=== PATIENT | female | born 1945 | race Caucasian/White ===

== ENCOUNTER → 2017-10-02 | Outpatient (CLI) | payer OTHER ==
[~2017-10-02] MED LIST: AMLODIPINE-BEN1 EAC3 PO; ASPIR 8181 MG PO; DETROL LA4 MG PO; LORATIDINE 10 M10 M1 PO; NEXIUM 40 MG CA40 M1 PO; NORCO 5-325 TA1 EACH PO; NOVAFERRUM 5050 MG PO; VITAMIN D2000 UNIT PO
== END ==
LOC: HYPER 08:28
DX: I87.312 Chronic venous hypertension (idiopathic) with ulcer of left lower extremity (principal); L97.821 Non-pressure chronic ulcer of other part of left lower leg limited to breakdown of skin; Z87.891 Personal history of nicotine dependence

== ENCOUNTER → 2017-10-08 | Outpatient (CLI) | payer OTHER ==
[~2017-10-08] MED LIST changes: +ALLERGY10 MG PO; +LASIX 20 MG TAB20 MG PO; +NEURONTIN 300300 M1 PO; +PERCOCET PO; +POTASSIUM20 PO
== END ==
LOC: HYPER 06:42
DX: I87.312 Chronic venous hypertension (idiopathic) with ulcer of left lower extremity (principal); L97.821 Non-pressure chronic ulcer of other part of left lower leg limited to breakdown of skin; K21.9 Gastro-esophageal reflux disease without esophagitis; Z87.891 Personal history of nicotine dependence

== ENCOUNTER → 2017-10-09 | Outpatient (CLI) | payer OTHER ==
[2017-10-09 11:24] LABS: HEMATOCRIT 34.3 % (37.0-47.0); HEMOGLOBIN 11.2 gm/dL (12.0-15.0); MCH 27.9 pg (26.0-34.0); MCHC 32.6 g/dL (28.0-37.0); MCV 85.6 fL (80.0-100.0); RBC 4.01 mil/uL (4.20-5.00); RDW 14.6 % (10.5-14.5); WBC 7.4 thou/uL (4.0-11.0)
[2017-10-09 11:43] LABS: ALBUMIN 3.5 g/dL (3.4-5.0); CALCIUM 8.8 mg/dL (8.5-10.1); CREATININE 0.9 mg/dL (0.6-1.0); POTASSIUM 4.5 mmol/L (3.5-5.1); TOTAL BILIRUBIN 0.3 mg/dL (<0.1-1.0); TOTAL PROTEIN 7.2 g/dL (6.4-8.2)
[2017-10-09 12:30] VITALS: BP 135/89
== END ==
LOC: OPONC 09:19
PROVIDERS: Specialist
DX: L97.821 Non-pressure chronic ulcer of other part of left lower leg limited to breakdown of skin (principal)
CPT/HCPCS: 95000

== ENCOUNTER → 2017-10-10 | Outpatient (CLI) | payer OTHER | LOC: OPONC 04:01 | DX: L03.116 Cellulitis of left lower limb (principal); Z88.2 Allergy status to sulfonamides; Z88.0 Allergy status to penicillin | CPT/HCPCS: 95000 ==

== ENCOUNTER → 2017-10-15 | Outpatient (CLI) | payer OTHER ==
[2017-10-15 11:10] VITALS: BP 147/39
== END ==
LOC: HYPER
DX: I87.312 Chronic venous hypertension (idiopathic) with ulcer of left lower extremity (principal); L97.821 Non-pressure chronic ulcer of other part of left lower leg limited to breakdown of skin; K21.9 Gastro-esophageal reflux disease without esophagitis; Z87.891 Personal history of nicotine dependence
CPT/HCPCS: 95000

== ENCOUNTER → 2017-10-16 | Outpatient (CLI) | payer OTHER ==
[2017-10-16 12:38] VITALS: BP 113/82
== END ==
LOC: OPONC 01:37
DX: L03.116 Cellulitis of left lower limb (principal); Z88.0 Allergy status to penicillin; Z88.2 Allergy status to sulfonamides; Z88.8 Allergy status to other drugs, medicaments and biological substances
CPT/HCPCS: 95000

== ENCOUNTER → 2017-10-17 | Outpatient (CLI) | payer OTHER | LOC: OPONC 09:00 | DX: L03.116 Cellulitis of left lower limb (principal) | CPT/HCPCS: 95000 ==

== ENCOUNTER → 2017-10-18 | Outpatient (CLI) | payer OTHER | LOC: OPONC 04:25 | DX: L03.116 Cellulitis of left lower limb (principal) | CPT/HCPCS: 95000 ==

== ENCOUNTER → 2017-10-29 | Outpatient (CLI) | payer OTHER | LOC: HYPER 06:50 | DX: I87.312 Chronic venous hypertension (idiopathic) with ulcer of left lower extremity (principal); L97.821 Non-pressure chronic ulcer of other part of left lower leg limited to breakdown of skin; K21.9 Gastro-esophageal reflux disease without esophagitis; Z87.891 Personal history of nicotine dependence ==

== ENCOUNTER → 2017-12-03 | Outpatient (CLI) | payer OTHER | LOC: HYPER 11-12 11:27 | DX: I87.312 Chronic venous hypertension (idiopathic) with ulcer of left lower extremity (principal); L97.821 Non-pressure chronic ulcer of other part of left lower leg limited to breakdown of skin; K21.9 Gastro-esophageal reflux disease without esophagitis; E66.9 Obesity, unspecified; Z68.37 Body mass index [BMI] 37.0-37.9, adult; Z87.891 Personal history of nicotine dependence ==

== ENCOUNTER → 2018-05-13 | Outpatient (CLI) | payer OTHER | LOC: RAD 11:19 | DX: M47.814 Spondylosis without myelopathy or radiculopathy, thoracic region (principal) ==

== ENCOUNTER → 2018-06-02 | Outpatient (CLI) | payer OTHER | LOC: HYPER 06:43 | DX: L97.811 Non-pressure chronic ulcer of other part of right lower leg limited to breakdown of skin (principal); I87.2 Venous insufficiency (chronic) (peripheral); Z98.49 Cataract extraction status, unspecified eye; Z87.891 Personal history of nicotine dependence ==